=== PATIENT | male | born 1960 | race Caucasian/White ===

== ENCOUNTER → 2016-10-04 | Outpatient (CLI) | payer OTHER ==
--- NOTE | 2016-10-04 16:07 | KCIC ---
Three-view right ankle HISTORY: Right lateral ankle pain after an injury one year ago. Worsening for 2 months. No comparison FINDINGS: Plantar calcaneal spur. No evidence of acute fracture. Joint spaces are intact. Tibiotalar joint is maintained. There is mild soft tissue swelling laterally. IMPRESSION: Lateral soft tissue swelling. No acute fracture. Electronically signed by: Lalito Raya MD (10/04/2016 4:04 PM) [facility]
== END | disposition home or self-care (01) ==
LOC: KCIC 15:42
PROVIDERS: ATTEND Nurse Practitioner Family
DX: M25.571 Pain in right ankle and joints of right foot (principal); M25.471 Effusion, right ankle
CPT/HCPCS: 73610

== ENCOUNTER 2020-02-26 11:31 | Emergency (ER) | payer OTHER ==
[~2020-02-26] VITALS: Ht 177.8 cm; Wt 100.0 kg
[2020-02-26 12:31] VITALS: BP 136/79
[2020-02-26] MEDS ORDERED: NEOMY/BACITR/POLYMYXIN OINT PACKET. TP ONE (13:00)
[2020-02-26] MEDS ORDERED: LIDOCAINE 2%/EPI 1:100,000 20 ML VIAL. INJ ONE (13:00)
--- NOTE | 2020-02-26 13:48 | PHYS DOC ---
Past Medical History Past Medical History: High Cholesterol Past Surgical History: Other Additional Past Surgical Histo: rhinoplasty 30 years ago Smoking Status: Never Smoker Alcohol Use: Occasionally Drug Use: None General Adult EDM: Chief Complaint: LACERATION/AVULSION HPI: HPI: Patient is a 60 year old male who presents with right thumb laceration which occurred just prior to arrival. Today patient was using a pocket knife at work and accidentally sliced his right thumb. He immediately noticed blood squirting from the thumb and rinsed it under running water before applying pressure with a towel. He states his tetanus is up-to-date, last received 2 to 3 years ago. He retains full thumb range of motion and sensation. Denies color change, numbness or tingling in fingers, or right arm weakness. Denies blood thinners. Review of Systems: Review of Systems: Constitutional: Denies fever or chills : Denies dysuria or hematuria Musculoskeletal: Denies back pain or joint pain Integument: +thumb laceration. Denies rash. Neurologic: Denies headache, focal weakness or sensory changes Complete systems were reviewed and found to be within normal limits, except as documented in this note. Current Medications: Current Medications Medications (Trade) Dose Ordered Sig/Inder Start Time Stop Time Status Last Admin Dose Admin Lidocaine/ Epinephrine (LIDOCAINE 2%-EPI 1:100,000 multi-dose) 20 ml 1X ONCE 02/26/20 13:00 02/26/20 13:15 DC Neomycin/ Polymyxin/ Bacitracin (Triple Antibiotic Ointment) 1 pkt 1X ONCE 02/26/20 13:00 02/26/20 13:15 DC Allergies: Allergies: Allergies Coded Allergies Type Severity Reaction Last Updated Verified No Known Drug Allergies 02/26/20 No Physical Exam: PE: Constitutional: Well developed, well nourished, no acute distress, non-toxic appearance HENT: Normocephalic, atraumatic Eyes: Conjunctiva normal, no discharge Neck: Normal range of motion, supple Lungs & Thorax: No respiratory distress, equal chest rise and fall Skin: Warm, dry, no erythema, no rash, 2cm linear laceration on tip of right thumb with oozing from wound (non-pulsatile) Extremities: No tenderness, ROM intact, no edema, right thumb laceration as above Neurologic: Alert and oriented X 3, normal motor function, normal sensory function, no focal deficits noted Psychologic: Affect normal, judgment normal Current Patient Data: Vital Signs: Vital Signs Date Time Temp Pulse Resp B/P (MAP) Pulse Ox O2 Delivery O2 Flow Rate FiO2 02/26/20 12:31 98.1 67 18 136/79 (98) 96 Room Air 98.1 Course & Med Decision Making: Course & Med Decision Making Pt is a 60 year old male who presents to the ED with right thumb laceration. Thumb retains full ROM, neurovascularly intact. Due to bleeding with thumb flexion, opted to close wound with sutures to help with bleeding and to also prevent infection. No tetanus vaccination needed at this time, patient is up to date. Digital block performed prior to suturing. Wound was irrigated, disinfected, and then closed with 6-0 nylon x3 sutures. Antibiotic ointment applied and dressing placed. Return precautions given, questions answered at bedside. Patient stable for discharge with outpatient follow-up with PCP. Discussed f indings and plan with patient, who acknowledges understanding and agreement. Sergio Disclaimer: Sergio Disclaimer: This electronic medical record was generated, in whole or in part, using a voice recognition dictation system. Laceration/Wound Repair Laceration/Wound Repair : Wound Location: upper extremity (fat pad of right thumb) Wound's Depth, Shape: linear Wound Length (cm): 2 Wound Explored: clean Irrigated w/ Saline (ccs): 200 Anesthesia: Lidocaine w/ Epi (2%) Volume Anesthetic (ccs): 2 Wound Debrided: minimal Wound Repaired With: sutures Suture Size/Type: 6:0, nylon Number of Sutures: 3 Sterile Dressing Applied?: Yes Splint Applied?: No Progress Verbal consent obtained. Time out performed. Hand hygiene utilized. Wound cleaned with ChloraPrep. Anesthesia obtained via 4 nerve digital block from dorsal approach to right thumb via 25-gauge hypodermic needle with 2 mL's of lidocaine 2% with epinephrine. Copious irrigation performed. Wound well approximated with 6-0 nylon x 3 sutures. Patient tolerated procedure well and without difficulty. Empiric antibiotic ointment applied prior to sterile dressing. Departure Departure Impression: Primary Impression: Laceration of thumb Qualified Codes: S61.011A - Laceration without foreign body of right thumb without damage to nail, initial encounter Disposition: 01 DC HOME SELF CARE/HOMELESS Condition: STABLE Referrals: NO PCP (PCP) Patient Instructions: Laceration Care, Adult, [place] Additional Instructions: Do not soak your wound. You may shower. Clean wound daily with soap and water. Change dressing 2 times daily. Use over the counter antibiotic ointment with each dressing change. Sutures need to be removed in 7-10 days. Present to your family doctor or local urgent care for removal. You may also present to the ED but it will be an additional visit/charge. After suture removal you may use Vitamin E ointment to soften the wound and prevent scarring. Use over the counter Ibuprofen or Tylenol for pain or discomfort. DE CROUCH DO Feb 26, 2020 13:48
== END 2020-02-26 14:26 | disposition home or self-care (01) ==
LOC: ER 11:31
DX: S61.011A Laceration without foreign body of right thumb without damage to nail, initial encounter (principal); E78.00 Pure hypercholesterolemia, unspecified; Z98.890 Other specified postprocedural states; W26.0XXA Contact with knife, initial encounter; Y93.89 Activity, other specified; Y92.89 Other specified places as the place of occurrence of the external cause; Y99.8 Other external cause status
CPT/HCPCS: 12001; 99283; J3490